=== PATIENT | male | born 1985 ===

== ENCOUNTER → 2022-01-27 | Day surgery (SDC) | payer OTHER ==
[2022-01-24 10:49] VITALS: BMI 33.6
[~2022-01-27] MED LIST: BUPIVACAINE HCL/PF 0.25% (2.5MG/ML) 10 ML VIAL ONE; DEXAMETHASONE SOD PHOSPHATE 10 MG/1 ML VIAL ONE; LIDOCAINE HCL/PF 1% SDV 5ML VIAL ONE
== END | disposition home or self-care (01) ==
LOC: JASU-SURG 04:23
PROVIDERS: ATTEND Physical Medicine & Rehabilitation
DX: Z53.8 Procedure and treatment not carried out for other reasons (principal)
CPT/HCPCS: J1100